=== PATIENT | female | born 1955 | race Caucasian/White ===

== ENCOUNTER 2020-04-23 17:31 | Inpatient (IN) | payer BC, OTHER ==
[2020-04-23 19:33] LABS: BASO % 0.1 % (0-2.0); EOS % 0.1 % (0-4.5); HEMATOCRIT 37.6 % (32.4-45.2); HEMOGLOBIN 12.7 GM/dL (10.7-15.3); MCH 30.9 pg (25.7-33.7); MCHC 33.9 g/dl (32.0-36.0); MEAN CELL VOLUME 91.2 fl (80-96); MEAN PLT VOLUME 10.6 fl (7.5-11.1); MONO % 5.4 % (3.8-10.2); NEUT % 84.4 % (42.8-82.8); PLATELET COUNT 222 K/MM3 (134-434); RBC 4.12 M/mm3 (3.60-5.2); RDW 14.8 % (11.6-15.6); WHITE BLOOD COUNT 11.6 K/mm3 (4.0-10.0)
[2020-04-23 19:40] LABS: INR 0.94 (0.83-1.09); PROTHROMBIN TIME (PATIENT) 11.4 SEC (9.7-13.0)
[2020-04-23 19:47] LABS: POTASSIUM 4.2 mmol/L (3.5-5.1)
[2020-04-23 19:49] LABS: ALBUMIN 4.1 g/dl (3.4-5.0); BLOOD UREA NITROGEN 30.2 mg/dL (7-18); CALCIUM 9.6 mg/dL (8.5-10.1); MAGNESIUM 2.5 mg/dL (1.8-2.4)
[2020-04-23 19:52] LABS: CREATININE 1.2 mg/dL (0.55-1.3)
[2020-04-23 19:54] LABS: BILIRUBIN,TOTAL 0.2 mg/dL (0.2-1); TOT PROT 7.4 g/dl (6.4-8.2)
[2020-04-23 19:58] LABS: N-TERMINAL BNP 237.3 pg/ml (5-125)
[2020-04-23] MEDS ORDERED: ASPIRIN 81 MG CHEWABLE TABLETS PO ONE ×2 (21:29→22:40)
[2020-04-23] MEDS ORDERED: ASPIRIN 81 MG CHEWABLE TABLETS ONE (21:54)
[2020-04-23] MEDS ORDERED: CLOPIDOGREL BISULFATE 300 MG TABLET PO ONE (23:45)
[2020-04-24] MEDS ORDERED: CLOPIDOGREL BISULFATE 300 MG TABLET ONE (00:07)
[2020-04-24] MEDS ORDERED: PNEUMOC 13-VAL CONJ-DIP CRM/PF 0.5 ML DISP.SYRIN IM ONE (02:00)
[2020-04-24 02:10] VITALS: BMI 27.0
[2020-04-24] MEDS ORDERED: HEPARIN NA (PORCINE) 5,000 UNITS/ML 1ML VIAL SQ SCH (06:00)
[2020-04-24] MEDS: INSULIN SLIDING SCALE (NOVOLOG) 1 VIAL SQ SCH ×4 (06:59→21:40)
[2020-04-24] MEDS: hydrALAZINE HCL 50 MG TABLET (FP) PO SCH ×3 (07:00→21:43)
[2020-04-24] MEDS: ENOXAPARIN NA (PORCINE) 60 MG/0.6 ML DISP.SYRIN SQ SCH ×2 (07:00→21:43)
[2020-04-24] MEDS ORDERED: INSULIN SLIDING SCALE (NOVOLOG) 1 VIAL SQ SCH (07:00)
[2020-04-24 07:03] LABS: BASO % 0.2 % (0-2.0); EOS % 0.3 % (0-4.5); HEMATOCRIT 33.8 % (32.4-45.2); HEMOGLOBIN 11.3 GM/dL (10.7-15.3); LYMPH % 23.5 % (8-40); MCH 30.1 pg (25.7-33.7); MCHC 33.4 g/dl (32.0-36.0); MEAN CELL VOLUME 90.2 fl (80-96); MEAN PLT VOLUME 10.2 fl (7.5-11.1); MONO % 8.4 % (3.8-10.2); NEUT % 67.6 % (42.8-82.8); PLATELET COUNT 195 K/MM3 (134-434); RBC 3.74 M/mm3 (3.60-5.2); RDW 14.2 % (11.6-15.6); WHITE BLOOD COUNT 7.6 K/mm3 (4.0-10.0)
[2020-04-24 07:40] LABS: ALBUMIN 3.3 g/dl (3.4-5.0); BLOOD UREA NITROGEN 24.6 mg/dL (7-18); CALCIUM 8.5 mg/dL (8.5-10.1); MAGNESIUM 2.5 mg/dL (1.8-2.4)
[2020-04-24 07:42] LABS: CREATININE 1.1 mg/dL (0.55-1.3)
[2020-04-24 07:43] LABS: PHOSPHOROUS 4.4 mg/dL (2.5-4.9)
[2020-04-24 07:44] LABS: TOT PROT 6.4 g/dl (6.4-8.2)
[2020-04-24 07:47] LABS: BILIRUBIN,TOTAL 0.3 mg/dL (0.2-1)
[2020-04-24] MEDS: ASPIRIN 81 MG CHEWABLE TABLETS PO SCH (09:57)
[2020-04-24] MEDS: amLODIPine BESYLATE 10 MG TABLET (FP) PO SCH (09:57)
[2020-04-24] MEDS: LISINOPRIL 20 MG TABLET PO SCH (09:58)
[2020-04-24] MEDS: CLOPIDOGREL BISULFATE 75 MG TABLET (FP) PO SCH (09:58)
[2020-04-24] MEDS ORDERED: PT OWN MED DRAWER 7, Y5N ONE (14:48)
[2020-04-24] MEDS: INSULIN (LEVEMIR) 100 UNITS/ML UNITS SQ SCH (21:34)
[2020-04-24] MEDS: ATORVASTATIN CA 40 MG TABLET (FP) PO SCH (21:43)
[2020-04-25] MEDS: hydrALAZINE HCL 50 MG TABLET (FP) PO SCH ×3 (06:21→22:19)
[2020-04-25] MEDS: INSULIN SLIDING SCALE (NOVOLOG) 1 VIAL SQ SCH ×4 (06:27→22:21)
[2020-04-25 07:30] LABS: POTASSIUM 4.4 mmol/L (3.5-5.1)
[2020-04-25 07:43] LABS: ALBUMIN 3.1 g/dl (3.4-5.0); BLOOD UREA NITROGEN 22.4 mg/dL (7-18)
[2020-04-25 07:44] LABS: BILIRUBIN,TOTAL 0.3 mg/dL (0.2-1); TOT PROT 6.3 g/dl (6.4-8.2)
[2020-04-25 07:45] LABS: CALCIUM 8.4 mg/dL (8.5-10.1)
[2020-04-25 07:46] LABS: CREATININE 1.1 mg/dL (0.55-1.3); MAGNESIUM 2.4 mg/dL (1.8-2.4)
[2020-04-25] MEDS: amLODIPine BESYLATE 10 MG TABLET (FP) PO SCH (09:13)
[2020-04-25] MEDS: CLOPIDOGREL BISULFATE 75 MG TABLET (FP) PO SCH (09:13)
[2020-04-25] MEDS: ENOXAPARIN NA (PORCINE) 60 MG/0.6 ML DISP.SYRIN SQ SCH ×2 (09:13→22:19)
[2020-04-25] MEDS: ASPIRIN 81 MG CHEWABLE TABLETS PO SCH (09:13)
[2020-04-25] MEDS: LISINOPRIL 20 MG TABLET PO SCH (09:14)
[2020-04-25] MEDS: ATORVASTATIN CA 40 MG TABLET (FP) PO SCH (22:19)
[2020-04-25] MEDS: INSULIN (LEVEMIR) 100 UNITS/ML UNITS SQ SCH (22:20)
[2020-04-26] MEDS: hydrALAZINE HCL 50 MG TABLET (FP) PO SCH ×2 (06:32→13:25)
[2020-04-26] MEDS: INSULIN SLIDING SCALE (NOVOLOG) 1 VIAL SQ SCH ×2 (06:33→11:55)
[2020-04-26 07:03] LABS: ALBUMIN 3.2 g/dl (3.4-5.0); BLOOD UREA NITROGEN 20.7 mg/dL (7-18); MAGNESIUM 2.3 mg/dL (1.8-2.4)
[2020-04-26 07:07] LABS: CREATININE 1.1 mg/dL (0.55-1.3)
[2020-04-26 07:08] LABS: BILIRUBIN,TOTAL 0.6 mg/dL (0.2-1); TOT PROT 6.4 g/dl (6.4-8.2)
[2020-04-26] MEDS ORDERED: INSULIN (LEVEMIR) 100 UNITS/ML UNITS SQ ONE (07:44)
[2020-04-26] MEDS ORDERED: INSULIN SLIDING SCALE (NOVOLOG) 1 VIAL SQ ONE (07:44)
[2020-04-26] MEDS: amLODIPine BESYLATE 10 MG TABLET (FP) PO SCH (09:18)
[2020-04-26] MEDS: LISINOPRIL 20 MG TABLET PO SCH (09:18)
[2020-04-26] MEDS: ASPIRIN 81 MG CHEWABLE TABLETS PO SCH (09:48)
[2020-04-26] MEDS: CLOPIDOGREL BISULFATE 75 MG TABLET (FP) PO SCH (09:48)
[2020-04-26 18:30] VITALS: BP 157/71; PULSE 76; TEMP 98.3
== END 2020-04-26 16:12 | disposition short-term general hospital (02) | DRG 282 ==
LOC: JER 17:31 → OBSVTOIN 20:02 → JERBED 20:02 → J4S 04-24 01:39
PROVIDERS: ADMIT Hospitalist; ATTEND Nurse Practitioner Acute Care
DX: I21.4 Non-ST elevation (NSTEMI) myocardial infarction (principal); E11.9 Type 2 diabetes mellitus without complications; I10 Essential (primary) hypertension; R07.9 Chest pain, unspecified; I24.9 Acute ischemic heart disease, unspecified; Z79.4 Long term (current) use of insulin
CPT/HCPCS: 36415; 71045-TC-FY; 80053; 80061; 82550; 82553; 82962; 83036; 83615; 83721; 83735; 83880; 84100; 84443; 84484; 85025; 85610; 90670; 93005; 93010; 93306-TC; 99285-25; C9803; U0003